=== PATIENT | male | born 1935 | race Caucasian/White ===

== ENCOUNTER 2016-10-16 13:51 | Emergency (ER) | payer MEDICARE ==
[~2016-10-16] VITALS: Ht 175.3 cm; Wt 107.9 kg
[~2016-10-16 13:51] MED LIST: ARMO90TA PO; FURO1TAB93 PO; GLUCTAB PO; LISI2.5T3 PO; PHEN-329 PO; POTA-243 PO; PRAV40TA2 PO
[2016-10-16 13:56] VITALS: BP 135/58; PULSE 68; RESP 18; TEMP 97.5; O2SAT 92
[2016-10-16] MEDS ORDERED: FURO40TA PO (15:21)
[2016-10-16] MEDS ORDERED: AMIO200T PO (15:21)
[2016-10-16] MEDS ORDERED: GLIP1TAB60 PO (15:21)
[2016-10-16] MEDS ORDERED: ATOR40TA16 PO (15:21)
[2016-10-16] MEDS ORDERED: POTA1TAB4 PO (15:21)
[2016-10-16] MEDS ORDERED: CHOL50006 PO (15:21)
[2016-10-16] MEDS ORDERED: VENTAER INH (15:21)
[2016-10-16] MEDS ORDERED: LOSA25TA PO (15:21)
[2016-10-16] MEDS ORDERED: METO50TA PO (15:21)
[2016-10-16 15:35] LABS: BLOOD, URINE NEG (NEG); GLUCOSE,URINE NEG (NEG); KETONE, URINE NEG (NEG); NITRITE,URINE NEG (NEG)
--- NOTE | 2016-10-16 15:51 | PD ---
HPI Chief Complaint: General Weakness Time Seen by Provider: 15:10 Travel History International Travel<30 days: No Contact w/Intl Traveler<30days: No Traveled to known affect area: No History of Present Illness HPI Patient presents with complaints of malaise and general weakness. Onset coincides with statin dosage change from 10 mg to 40 mg. Denies any nausea vomiting diarrhea or fever. Denies any chest pain shortness of breath urinary or bowel symptoms. Otherwise feels well PFSH Past Medical History Hx Anticoagulant Therapy: No Asthma: No Autoimmune Disease: No Blood Disorders: No Cancer: No Cardiac Catheterization: Yes Cardiovascular Problems: Yes (WI'S, DEFIBRILLATOR, HTN, CHOL) High Cholesterol: Yes Chemotherapy: No Chest Pain: Yes Congestive Heart Failure: Yes COPD: No Diabetes: Yes Patient Takes Glucophage: No Diminished Hearing: Yes Endocrine: No Gastrointestinal Disorders: No Genitourinary: No Hypertension: Yes Musculoskeletal: No Neurologic: No Psychiatric: No Respiratory: No Immunizations Current: Yes Thyroid Disease: Yes Tetanus Vaccination: Unknown Influenza Vaccination: No Past Surgical History AICD: Yes Coronary Artery Bypass Graft: Yes (2004) Coronary Stent: Yes (X1) Social History Alcohol Use: Yes (VERY RARE) Tobacco Use: No (FORMER) Substance Use: No Allergies-Medications (Allergen,Severity, Reaction): Coded Allergies: Penicillin (Verified Allergy, Severe, Rash, 10/16/16) Reported Meds & Prescriptions Reported Meds & Active Scripts Active Reported Ventolin Hfa 18 GM Inh (Albuterol Sulfate) 90 Mcg/Act Aer 2 Puff INH Q4H PRN Amiodarone (Amiodarone HCl) 200 Mg Tab 200 Mg PO DAILY Losartan (Losartan Potassium) 25 Mg Tab 25 Mg PO DAILY Furosemide 40 Mg Tab 40 Mg PO DAILY Glipizide ER (Glipizide) 2.5 Mg Jeff 2.5 Mg PO BID Take with breakfast or first main meal of the day Vitamin D (Cholecalciferol) 5,000 Unit Tab 5,000 Units PO MOFR Metoprolol Tartrate 50 Mg Tab 50 Mg PO BID Atorvastatin (Atorvastatin Calcium) 40 Mg Tab 40 Mg PO DAILY K-Tab (Potassium Chloride) 20 Meq Tab 20 Meq PO BID Review of Systems General / Constitutional: No: Fever Eyes: No: Visual changes HENT: No: Headaches Cardiovascular: No: Chest Pain or Discomfort Respiratory: No: Shortness of Breath Gastrointestinal: No: Abdominal Pain Genitourinary: No: Dysuria Musculoskeletal: Positive: Myalgias, Weakness, No: Pain Skin: No Rash Neurologic: No: Weakness Psychiatric: No: Depression Endocrine: No: Polydipsia Hematologic/Lymphatic: No: Easy Bruising Physical Exam Narrative GENERAL: Well-nourished, well-developed patient. SKIN: Warm and dry. HEAD: Normocephalic. EYES: No scleral icterus. No injection or drainage. NECK: Supple, trachea midline. No JVD or lymphadenopathy. CARDIOVASCULAR: Regular rate and rhythm without murmurs, gallops, or rubs. RESPIRATORY: Breath sounds equal bilaterally. No accessory muscle use. GASTROINTESTINAL: Abdomen soft, non-tender, nondistended. MUSCULOSKELETAL: No cyanosis, or edema. BACK: Nontender without obvious deformity. No CVA tenderness. Data Data Last Documented VS Vital Signs Date Time Temp Pulse Resp B/P Pulse Ox O2 Delivery O2 Flow Rate FiO2 10/16/16 15:00 66 18 93 Room Air 10/16/16 13:56 97.5 135/58 Orders Urinalysis - C+S If Indicated (10/16/16 15:10) Influenzae A/B Antigen (10/16/16 15:10) Labs Laboratory Tests Test 10/16/16 15:20 Urine pH 6.0 Urine Protein NEG mg/dL Urine Glucose (UA) NEG mg/dL Urine Ketones NEG mg/dL Urine Occult Blood NEG Urine Nitrite NEG Urine Bilirubin NEG Urine Leukocyte Esterase NEG MDM Medical Decision Making Medical Screen Exam Complete: Yes Emergency Medical Condition: Yes Differential Diagnosis Medication side effect, influenza, UTI Narrative Course Assessment and plan discussed with patient and daughter at bedside. Urinalysis and influenza noted. Diagnosis Primary Impression: Medication side effect Qualified Code: T88.7XXA - Medication side effect, initial encounter Patient Instructions: General Instructions Additional Instructions: Rest fluids and Tylenol. I think with the lack of symptoms is most likely a reaction to the significant change in dosage of a statin. Encouraged to hold statin and follow-up with PCP to assess benefit. Encouraged to follow with his PCP or return to the ER with any new symptoms. Med/Other Pt SpecificInfo: No Meds Exist/No RX given Disposition: 01 DISCHARGE HOME Condition: Good Rex Grullon MD Oct 16, 2016 15:51
[2016-10-16 16:16] LABS: COMMENT (UR) CULT NOT INDICATED; CULTURE IF INDICATED CULT NOT INDICATED; METHOD OF COLLECTION CLEAN CATCH; RBC, URINE 0-3 /hpf (0-3); SQUAMOUS EPITHELIAL CELL URINE 0-5 /hpf (0-5); URINE COLOR YELLOW (YELLW/STRAW)
[2016-10-16 16:27] VITALS: BP 117/65
== END 2016-10-16 16:28 | disposition home or self-care (01) ==
LOC: PHED 13:51
DX: T88.7XXA Unspecified adverse effect of drug or medicament, initial encounter (principal); R53.81 Other malaise; R53.1 Weakness; E78.00 Pure hypercholesterolemia, unspecified; E11.9 Type 2 diabetes mellitus without complications; H91.90 Unspecified hearing loss, unspecified ear; I10 Essential (primary) hypertension; E07.9 Disorder of thyroid, unspecified; Z79.899 Other long term (current) drug therapy; Z79.84 Long term (current) use of oral hypoglycemic drugs; Z87.891 Personal history of nicotine dependence; Z86.79 Personal history of other diseases of the circulatory system
CPT/HCPCS: 81001; 87804; 99284

== ENCOUNTER 2018-01-08 19:44 | Observation (INO) | payer MEDICARE ==
[2018-01-07] MEDS: NITROGLYCERIN 0.4 MG SL 25 TABS/BTL SL SCH ×2 (20:30→20:35)
[~2018-01-08] VITALS: Ht 175.3 cm; Wt 110.4 kg
[2018-01-08 19:44] VITALS: BP 120/57; PULSE 73; RESP 18; TEMP 97.3; O2SAT 96
[~2018-01-08 19:44] MED LIST changes: +AMIO200T PO; -ARMO90TA PO; +ATOR40TA16 PO; +CHOL50006 PO; -FURO1TAB93 PO; +FURO40TA PO; +GLIP1TAB60 PO; -GLUCTAB PO; -LISI2.5T3 PO; +LOSA25TA PO; +METO50TA PO; -PHEN-329 PO; -POTA-243 PO; +POTA1TAB4 PO; -PRAV40TA2 PO; +VENTAER INH
[2018-01-08 19:55] VITALS: BP 120/57; PULSE 75; RESP 20; TEMP 97.3; O2SAT 95
[2018-01-08 20:00] VITALS: BP 102/59; PULSE 72; RESP 18; O2SAT 96
--- NOTE | 2018-01-08 20:28 | PD ---
HPI Chief Complaint: chest pain Time Seen by Provider: 20:02 Travel History International Travel<30 days: No Contact w/Intl Traveler<30days: No History of Present Illness HPI Patient is an 82-year-old male with history of CABG, CAD, hypertension, atrial fibrillation, COPD, hyperlipidemia, diabetes, presents the emergency room with complaints of chest pain. Patient reports that he has been having chest pain for the past 3-4 days, patient reports that chest pain is substernal in nature and feels like a "pressure to my chest." Patient reports that he has been feeling short of breath with the symptoms, reports that he has history of HI in the past, reports that when he last suffered an HI, he had symptoms of indigestion, reports that pain today is different. Patient does follow-up with Dr. 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 Akers decrease his dose of amiodarone from 3 times a day to once a day. Patient believes that once he change his medication dose, "I began to go down the drain." Patient reports that his initial chest pain was initially intermittent in nature, reports that his chest pain lasts a little longer now. Patient also endorses that he fell one week ago, patient also complains of left- sided shoulder pain. PFSH Past Medical History Hx Anticoagulant Therapy: No Asthma: No Autoimmune Disease: No Blood Disorders: No Cancer: No Cardiac Catheterization: Yes Cardiovascular Problems: Yes (HI'S, DEFIBRILLATOR, HTN, CHOL) High Cholesterol: Yes Chemotherapy: No Chest Pain: Yes Congestive Heart Failure: Yes COPD: No Diabetes: Yes Diminished Hearing: Yes Endocrine: No Gastrointestinal Disorders: No Genitourinary: No Hypertension: Yes Musculoskeletal: No Neurologic: No Psychiatric: No Respiratory: No Immunizations Current: Yes Thyroid Disease: Yes Past Surgical History AICD: Yes Coronary Artery Bypass Graft: Yes (2005) Coronary Stent: Yes (X1) Social History Alcohol Use: Yes (VERY RARE) Tobacco Use: No (FORMER) Substance Use: No Allergies-Medications (Allergen,Severity, Reaction): Coded Allergies: penicillin G (Unverified Allergy, Severe, Rash, 05/09/17) Reported Meds & Prescriptions Reported Meds & Active Scripts Active Reported Vitamin D3 (Cholecalciferol) 5,000 Unit Cap 5,000 Units PO DAILY Levothyroxine (Levothyroxine Sodium) 25 Mcg Tab 25 Mcg PO DAILY Ventolin Hfa 18 GM Inh (Albuterol Sulfate) 90 Mcg/Act Aer 2 Puff INH Q4H PRN Amiodarone (Amiodarone HCl) 200 Mg Tab 200 Mg PO DAILY Furosemide 40 Mg Tab 40 Mg PO DAILY Glipizide ER (Glipizide) 2.5 Mg Jeff 2.5 Mg PO BID Take with breakfast or first main meal of the day Metoprolol Tartrate 50 Mg Tab 50 Mg PO BID K-Tab (Potassium Chloride) 20 Meq Tab 20 Meq PO BID Review of Systems General / Constitutional: No: Fever Eyes: No: Visual changes HENT: No: Headaches Cardiovascular: Positive: Chest Pain or Discomfort Respiratory: Positive: Shortness of Breath Gastrointestinal: No: Abdominal Pain Genitourinary: No: Dysuria Musculoskeletal: No: Pain Skin: No Rash Neurologic: No: Weakness Psychiatric: No: Depression Endocrine: No: Polydipsia Hematologic/Lymphatic: No: Easy Bruising Physical Exam Narrative GENERAL: Mild distress SKIN: Focused skin assessment warm/dry. HEAD: Atraumatic. Normocephalic. EYES: Pupils equal and round. No scleral icterus. No injection or drainage. ENT: No nasal bleeding or discharge. Mucous membranes pink and moist. NECK: Trachea midline. No JVD. CARDIOVASCULAR: Regular rate and rhythm. No murmur appreciated. RESPIRATORY: No accessory muscle use. Clear to auscultation. Breath sounds equal bilaterally. GASTROINTESTINAL: Abdomen soft, non-tender, nondistended. Hepatic and splenic margins not palpable. MUSCULOSKELETAL: No obvious deformities. No clubbing. No cyanosis. No edema. NEUROLOGICAL: Awake and alert. No obvious cranial nerve deficits. Motor grossly within normal limits. Normal speech. PSYCHIATRIC: Appropriate mood and affect; insight and judgment normal. Data Data Last Documented VS Vital Signs Date Time Temp Pulse Resp B/P (MAP) Pulse Ox O2 Delivery O2 Flow Rate FiO2 01/08/18 22:00 72 16 135/60 (85) 98 Room Air 01/08/18 19:55 97.3 Orders Orders Electrocardiogram (01/08/18 20:17) B-Type Natriuretic Peptide (01/08/18 20:17) Ckmb (Isoenzyme) Profile (01/08/18 20:17) Complete Blood Count With Diff (01/08/18 20:17) Comprehensive Metabolic Panel (01/08/18 20:17) Magnesium (Mg) (01/08/18 20:17) Prothrombin Time / Inr (Pt) (01/08/18 20:17) Act Partial Throm Time (Ptt) (01/08/18 20:17) Troponin I (01/08/18 20:17) Lipase (01/08/18 20:17) Chest, Single Ap (01/08/18 20:17) Ecg Monitoring (01/08/18 20:17) Iv Access Insert/Monitor (01/08/18 20:17) Oximetry (01/08/18 20:17) Aspirin Chew (Aspirin Chew) (01/08/18 20:30) Sodium Chloride 0.9% Flush (Ns Flush) (01/08/18 20:30) Shoulder, Complete (>2vws) (01/08/18 ) Nitroglycerin Sl (Nitrostat Sl) (01/08/18 20:30) Morphine Inj (Morphine Inj) (01/08/18 20:45) Labs Laboratory Tests Test 01/08/18 20:30 White Blood Count 6.8 TH/MM3 Red Blood Count 4.70 MIL/MM3 Hemoglobin 13.5 GM/DL Hematocrit 40.4 % Mean Corpuscular Volume 86.0 FL Mean Corpuscular Hemoglobin 28.8 PG Mean Corpuscular Hemoglobin Concent 33.5 % Red Cell Distribution Width 13.9 % Platelet Count 196 TH/MM3 Mean Platelet Volume 8.4 FL Neutrophils (%) (Auto) 63.5 % Lymphocytes (%) (Auto) 24.3 % Monocytes (%) (Auto) 9.9 % Eosinophils (%) (Auto) 1.9 % Basophils (%) (Auto) 0.4 % Neutrophils # (Auto) 4.3 TH/MM3 Lymphocytes # (Auto) 1.7 TH/MM3 Monocytes # (Auto) 0.7 TH/MM3 Eosinophils # (Auto) 0.1 TH/MM3 Basophils # (Auto) 0.0 TH/MM3 CBC Comment DIFF FINAL Differential Comment Prothrombin Time 9.9 SEC Prothromb Time International Ratio 1.0 RATIO Activated Partial Thromboplast Time 26.4 SEC Blood Urea Nitrogen 27 MG/DL Creatinine 1.30 MG/DL Random Glucose 137 MG/DL Total Protein 7.5 GM/DL Albumin 3.1 GM/DL Calcium Level 10.0 MG/DL Magnesium Level 2.2 MG/DL Alkaline Phosphatase 95 U/L Aspartate Amino Transf (AST/SGOT) 16 U/L Alanine Aminotransferase (ALT/SGPT) 16 U/L Total Bilirubin 0.2 MG/DL Sodium Level 144 MEQ/L Potassium Level 4.1 MEQ/L Chloride Level 111 MEQ/L Carbon Dioxide Level 24.6 MEQ/L Anion Gap 8 MEQ/L Estimat Glomerular Filtration Rate 53 ML/MIN Total Creatine Kinase 35 U/L Troponin I LESS THAN 0.02 NG/ML B-Type Natriuretic Peptide 205 PG/ML Lipase 155 U/L [facility] Medical Decision Making Medical Screen Exam Complete: Yes Emergency Medical Condition: Yes Medical Record Reviewed: Yes Interpretation(s) EKG at 2010: NSR at 73bpm, qt/qtc: 419/444, no acute changes Vital Signs Date Time Temp Pulse Resp B/P (MAP) Pulse Ox O2 Delivery O2 Flow Rate FiO2 01/08/18 19:55 97.3 75 20 120/57 (78) 95 Differential Diagnosis ACS, arrhythmia, electrolyte abnormality, CHF exacerbation, atrial fibrillation Narrative Course Patient is an 82-year-old male who presents the emergency room with complaints of chest pain. Patient has been having intermittent episodes of chest pain for the past few days, reports that pain has been increasing over the past few days. During the course of the patients emergency department visit, the patients history, examination, and differential diagnosis were reviewed with the patient. The patient was placed on a hotel assistant general manager with oximetry and frequent blood pressure monitoring. The patient had an IV access obtained and blood work sent for analysis. The patient was initially provided asa as well as SL nitro The patients laboratory studies were reviewed and remarkable for Laboratory Tests Test 01/08/18 20:30 White Blood Count 6.8 TH/MM3 (4.0-11.0) Red Blood Count 4.70 MIL/MM3 (4.50-5.90) Hemoglobin 13.5 GM/DL (13.0-17.0) Hematocrit 40.4 % (39.0-51.0) Mean Corpuscular Volume 86.0 FL (80.0-100.0) Mean Corpuscular Hemoglobin 28.8 PG (27.0-34.0) Mean Corpuscular Hemoglobin Concent 33.5 % (32.0-36.0) Red Cell Distribution Width 13.9 % (11.6-17.2) Platelet Count 196 TH/MM3 (150-450) Mean Platelet Volume 8.4 FL (7.0-11.0) Neutrophils (%) (Auto) 63.5 % (16.0-70.0) Lymphocytes (%) (Auto) 24.3 % (9.0-44.0) Monocytes (%) (Auto) 9.9 % (0.0-8.0) Eosinophils (%) (Auto) 1.9 % (0.0-4.0) Basophils (%) (Auto) 0.4 % (0.0-2.0) Neutrophils # (Auto) 4.3 TH/MM3 (1.8-7.7) Lymphocytes # (Auto) 1.7 TH/MM3 (1.0-4.8) Monocytes # (Auto) 0.7 TH/MM3 (0-0.9) Eosinophils # (Auto) 0.1 TH/MM3 (0-0.4) Basophils # (Auto) 0.0 TH/MM3 (0-0.2) CBC Comment DIFF FINAL Differential Comment Prothrombin Time 9.9 SEC (9.8-11.6) Prothromb Time International Ratio 1.0 RATIO Activated Partial Thromboplast Time 26.4 SEC (24.3-30.1) Blood Urea Nitrogen 27 MG/DL (7-18) Creatinine 1.30 MG/DL (0.60-1.30) Random Glucose 137 MG/DL (74-106) Total Protein 7.5 GM/DL (6.4-8.2) Albumin 3.1 GM/DL (3.4-5.0) Calcium Level 10.0 MG/DL (8.5-10.1) Magnesium Level 2.2 MG/DL (1.5-2.5) Alkaline Phosphatase 95 U/L (45-117) Aspartate Amino Transf (AST/SGOT) 16 U/L (15-37) Alanine Aminotransferase (ALT/SGPT) 16 U/L (12-78) Total Bilirubin 0.2 MG/DL (0.2-1.0) Sodium Level 144 MEQ/L (136-145) Potassium Level 4.1 MEQ/L (3.5-5.1) Chloride Level 111 MEQ/L (98-107) Carbon Dioxide Level 24.6 MEQ/L (21.0-32.0) Anion Gap 8 MEQ/L (5-15) Estimat Glomerular Filtration Rate 53 ML/MIN (>89) Total Creatine Kinase 35 U/L (39-308) Troponin I LESS THAN 0.02 NG/ML B-Type Natriuretic Peptide 205 PG/ML (0-100) Lipase 155 U/L (73-393) Last Impressions Chest X-Ray 01/08/182016 Signed Impressions: Service Date/Time: Monday, January 08, 2018 20:52 - CONCLUSION: Diffuse increase interstitial markings and cardiomegaly likely related to pulmonary venous hypertension or mild CHF. Cardiomegaly with underlying chronic interstitial disease could have a similar appearance. Owen Nick MD Shoulder X-Ray 01/08/18 Signed Impressions: Service Date/Time: Monday, January 08, 2018 20:52 - CONCLUSION: Negative left shoulder series. Owen Nick MD Patient feels much better at this time. discussed wit patient plan to obs him to chest pain unit. Patient aggreeable Diagnosis Primary Impression: Chest pain Qualified Codes: R07.9 - Chest pain, unspecified Admitting Information Admitting Physician Requests: Observation Elsa Guthrie DO Jan 08, 2018 20:28
[2018-01-08] MEDS ORDERED: ASPIRIN 81 MG CHEW TAB PO ONE (20:30)
[2018-01-08] MEDS ORDERED: SODIUM CHLORIDE 0.9% FLUSH 10 ML FLUSH IVF PRN (20:30)
[2018-01-08] MEDS: NITROGLYCERIN 0.4 MG SL 25 TABS/BTL SL SCH (20:40)
[2018-01-08 20:41] LABS: AUTOMATED NEUTROPHIL # 4.3 TH/MM3 (1.8-7.7); BASOPHIL % 0.4 % (0.0-2.0); EOSINOPHIL # 0.1 TH/MM3 (0-0.4); EOSINOPHIL % 1.9 % (0.0-4.0); HEMATOCRIT 40.4 % (39.0-51.0); HEMOGLOBIN 13.5 GM/DL (13.0-17.0); LYMPH % 24.3 % (9.0-44.0); LYMPHOCYTE # 1.7 TH/MM3 (1.0-4.8); MEAN CORPUSCULAR HEMOGLOBIN 28.8 PG (27.0-34.0); MEAN CORPUSCULAR HGB CONC 33.5 % (32.0-36.0); MEAN PLATELET VOLUME 8.4 FL (7.0-11.0); MONO % 9.9 % (0.0-8.0); MONOCYTE # 0.7 TH/MM3 (0-0.9); NEUT % 63.5 % (16.0-70.0); PLATELET COUNT 196 TH/MM3 (150-450); RED CELL DISTRIBUTION WIDTH 13.9 % (11.6-17.2); WHITE BLOOD COUNT 6.8 TH/MM3 (4.0-11.0)
[2018-01-08] MEDS ORDERED: MORPHINE SULFATE 2 MG/ML SYRINGE IV PUSH ONE (20:45)
[2018-01-08 20:48] LABS: CHLORIDE 111 MEQ/L (98-107); SODIUM (NA) 144 MEQ/L (136-145)
[2018-01-08 20:52] LABS: ALBUMIN 3.1 GM/DL (3.4-5.0); BICARBONATE 24.6 MEQ/L (21.0-32.0); BLOOD UREA NITROGEN 27 MG/DL (7-18); GLUCOSE,RANDOM 137 MG/DL (74-106); MAGNESIUM 2.2 MG/DL (1.5-2.5)
[2018-01-08 20:55] LABS: ALT (GPT) 16 U/L (12-78); AST (GOT) 16 U/L (15-37); GLOMERULAR FILTRATION RATE 53 ML/MIN (>89)
[2018-01-08 20:57] LABS: TOTAL BILIRUBIN ADULT 0.2 MG/DL (0.2-1.0); TOTAL PROTEIN 7.5 GM/DL (6.4-8.2)
[2018-01-08 20:58] LABS: ALKALINE PHOSPHATASE 95 U/L (45-117)
[2018-01-08 21:00] VITALS: BP 125/62; PULSE 70; RESP 18; O2SAT 96
[2018-01-08 21:00] LABS: TROPONIN I LESS THAN 0.02 NG/ML (0.02-0.05)
[2018-01-08 21:04] LABS: PROTHROMBIN TIME - PATIENT 9.9 SEC (9.8-11.6)
--- NOTE | 2018-01-08 21:35 | RADRPT ---
EXAM DATE/TIME: 01/08/2018 20:52 [facility] COMPARISON: No previous studies available for comparison. INDICATIONS : Left upper chest and shoulder pain after falling 2 days ago. MEDICAL HISTORY : None. SURGICAL HISTORY : Pacemaker. CABG. ENCOUNTER: Initial ACUITY: 2 days PAIN SCORE: 5/10 LOCATION: Left shoulder FINDINGS: Multiple view examination of the left shoulder demonstrates no evidence of fracture or dislocation. The glenohumeral and acromioclavicular joints are maintained. There is normal range of motion betwee n internal and external rotation. The bones appear osteopenic. There is a pacemaker seen in the left chest. The patient is status post sternotomy. There is a prosth etic valve present. There is interstitial disease seen in the lungs. CONCLUSION: Negative left shoulder series. Owen Nick MD on January 08, 2018 at 21:31 Board Certified Radiologist. This report was verified electronically.
--- NOTE | 2018-01-08 21:36 | RADRPT ---
EXAM DATE/TIME: 01/08/2018 20:52 [facility] COMPARISON: CHEST SINGLE AP, June 22, 2015, 15:10. INDICATIONS : Left upper chest and shoulder pain after falling 2 days ago. MEDICAL HISTORY : Hypertension. Congestive heart failure. Coronary artery disease. SURGICAL HISTORY : Pacemaker. CABG. Coronary artery stent. ENCOUNTER: Initial ACUITY: 2 days PAIN SCORE: 4/10 LOCATION: Left upper chest FINDINGS: The patient is status post sternotomy. There is a pacing device in the left chest. There is a prosthe tic valve present. There is diffuse increased interstitial markings. These are unchanged from the cesia or exam. An alveolar consolidation is not seen. No effusion is seen. CONCLUSION: Diffuse increase interstitial markings and cardiomegaly likely related to pulmonary venous hypertens ion or mild CHF. Cardiomegaly with underlying chronic interstitial disease could have a similar appe arance. Owen Nick MD on January 08, 2018 at 21:33 Board Certified Radiologist. This report was verified electronically.
[2018-01-08 22:00] VITALS: BP 135/60; PULSE 72; RESP 16; O2SAT 98
[2018-01-08] MEDS ORDERED: LEVO25TA4 PO (22:33)
[2018-01-08] MEDS ORDERED: CHOL5000 PO (22:33)
[2018-01-08] MEDS ORDERED: SODIUM CHLOR 0.9% 1000 ML INJ 1,000 ML IV SCH (23:10)
[2018-01-08 23:14] VITALS: BP 132/75; PULSE 78; RESP 16; O2SAT 96
[2018-01-08] MEDS ORDERED: ONDANSETRON HCL 4 MG/2 ML VIAL IV PUSH PRN (23:15)
[2018-01-08] MEDS ORDERED: ACETAMINOPHEN 500 MG CPLT PO PRN (23:15)
[2018-01-08] MEDS ORDERED: SODIUM CHLORIDE 0.9% FLUSH 10 ML FLUSH IV FLUSH PRN (23:15)
[2018-01-08] MEDS ORDERED: MORPHINE SULFATE 4 MG/ML INJ IV PUSH PRN (23:15)
[2018-01-09] VITALS (8 sets, daily range): BP systolic 106–142; BP diastolic 62–89; PULSE 65–74; RESP 16–22; TEMP 96.2–97.1; O2SAT 93–95
[2018-01-09 00:13] LABS: TROPONIN I LESS THAN 0.02 NG/ML (0.02-0.05)
[2018-01-09] MEDS: HEPARIN SODIUM - SQ 10,000 UNITS/ML VIAL SQ SCH ×2 (01:15→06:56)
[2018-01-09 04:17] LABS: TROPONIN I 0.02 NG/ML (0.02-0.05)
[2018-01-09] MEDS ORDERED: SODIUM CHLORIDE 0.9% FLUSH 10 ML FLUSH IV FLUSH SCH (09:00)
[2018-01-09] MEDS ORDERED: POTASSIUM CHLORIDE 20 MEQ CONTROLLED RELEASE TAB PO SCH (09:00)
[2018-01-09] MEDS ORDERED: GLUCAGON 1 MG/ML VIAL OTHER PRN (09:00)
[2018-01-09] MEDS ORDERED: AMIODARONE 200 MG TAB PO SCH (09:00)
[2018-01-09] MEDS ORDERED: METOPROLOL TARTRATE 50 MG TAB PO SCH (09:00)
[2018-01-09] MEDS ORDERED: FUROSEMIDE 40 MG/4 ML VIAL IV PUSH ONE (09:00)
[2018-01-09] MEDS ORDERED: FUROSEMIDE 40 MG TAB PO SCH (09:00)
[2018-01-09] MEDS ORDERED: DEXTROSE 50% IN WATER 50 ML VIAL(D50) IV PUSH PRN (09:00)
--- NOTE | 2018-01-09 09:00 | HHI.HP ---
[facility] Service [facility] Primary Care Physician Walt Schaffer MD Admission Diagnosis chest pain Diagnoses: (1) Chest pain Chief Complaint: Chest pain and dyspnea Travel History International Travel<30 Days: No Contact w/Intl Traveler <30 Da: No Traveled to Known Affected Are: No History of Present Illness This is an 82-year-old male patient with a known medical history of CAD with history of DE, CABG and cardiac stent placement, hypertension, COPD, hyperlipidemia, diabetes and atrial fibrillation who presented to the ED with complaints of chest pain and dyspnea. Patient states he has been having some chest pain for the last 3 or 4 days, he states it has evidence of sternal chest , pressure-like in nature, denies any radiation of pain, the pain usually last a few minutes and then resolves on its own. Does admit to history of DE with previous CABG, at the time he states that the pain he felt was different than his present pain. Denies any known alleviating or worsening factors. He denies any recent illness including fever, chills, cough, headache, shortness of breath, abdominal pain, nausea, vomiting, diarrhea or dysuria. Patient follows with Dr. Akers, [facility], who manages his atrial fibrillation and heart failure. Patient reportedly states his last echocardiogram showed an EF of 20-30%. Dr. Akers was last seen 2 weeks ago with a change in his amiodarone dose. It should be noted that patient also states he has not taken his furosemide on a daily basis, states it interferes with his daily life and he gets annoyed having to urinate all the time. He has noticed trace edema in his bilateral lower extremities. He also states that with activity he does get short of breath. Patient also endorses that he fell 1 week ago and complains of left shoulder pain upon presentation which is now resolved. Review of Systems Constitutional: DENIES: Diaphoretic episodes, Fatigue, Fever, Chills Eyes: DENIES: Blurred vision, Diplopia Respiratory: COMPLAINS OF: Shortness of breath, DENIES: Cough, Sputum production Cardiovascular: COMPLAINS OF: Chest pain, Lower Extremity Edema Gastrointestinal: DENIES: Abdominal pain, Black stools, Bloody stools, Constipation, Diarrhea, Nausea, Vomiting Musculoskeletal: DENIES: Joint pain Hematologic/lymphatic: DENIES: Bruising Psychiatric: COMPLAINS OF: Anxiety Except as stated in HPI: all other systems reviewed are Neg Past Family Social History Past Medical History Hypertension Hyperlipidemia History of DE and CABG and cardiac stent placement COPD CHF Diabetes Past Surgical History AICD placement History of CABG and cardiac stent placement 2004 Reported Medications Active Reported Vitamin D3 (Cholecalciferol) 5,000 Unit Cap 5,000 Units PO DAILY Levothyroxine (Levothyroxine Sodium) 25 Mcg Tab 25 Mcg PO DAILY Ventolin Hfa 18 GM Inh (Albuterol Sulfate) 90 Mcg/Act Aer 2 Puff INH Q4H PRN Amiodarone (Amiodarone HCl) 200 Mg Tab 200 Mg PO DAILY Furosemide 40 Mg Tab 40 Mg PO DAILY Glipizide ER (Glipizide) 2.5 Mg Jeff 2.5 Mg PO BID Take with breakfast or first main meal of the day Metoprolol Tartrate 50 Mg Tab 50 Mg PO BID K-Tab (Potassium Chloride) 20 Meq Tab 20 Meq PO BID Allergies: Coded Allergies: penicillin G (Unverified Allergy, Severe, Rash, 05/09/17) Active Ordered Medications Current Medications Medications (Trade) Dose Ordered Sig/Jannette Route Start Time Stop Time Status Last Admin (NS Flush) 2 ml UNSCH PRN IV FLUSH 01/08/18 23:15 (NS Flush) 2 ml BID IV FLUSH 01/09/18 09:00 (Tylenol) 500 mg Q4H PRN PO 01/08/18 23:15 (Zofran Inj) 4 mg Q6H PRN IV PUSH 01/08/18 23:15 (Heparin Inj) 5,000 units Q8H SQ 01/08/18 23:15 01/09/18 06:56 (Morphine Inj) 4 mg Q3H PRN IV PUSH 01/08/18 23:15 (Proair Hfa Inh) 2 puff Q4H PRN INH 01/09/18 10:00 (Cordarone) 200 mg DAILY PO 01/09/18 09:00 (Vitamin D3) 5,000 units DAILY PO 01/09/18 10:00 (Synthroid) 25 mcg DAILY@0600 PO 01/09/18 10:00 (Lopressor) 50 mg BID PO 01/09/18 09:00 (KCl) 20 meq BID PO 01/09/18 09:00 (Lasix) 40 mg DAILY PO 01/09/18 09:00 (D50w (Vial) Inj) 50 ml UNSCH PRN IV PUSH 01/09/18 09:00 (Glucagon Inj) 1 mg UNSCH PRN OTHER 01/09/18 09:00 (NovoLOG SUPPLEMENTAL SCALE) 1 ACHS SLIDING SCALE SQ 01/09/18 12:00 Family History Reviewed, noncontributory. Social History Denies any current tobacco use, alcohol use or illicit drug use. Physical Exam Vital Signs Vital Signs Date Time Temp Pulse Resp B/P (MAP) Pulse Ox O2 Delivery O2 Flow Rate FiO2 01/09/18 08:00 96.4 72 18 132/67 (88) 93 01/09/18 02:00 68 01/09/18 02:00 97.1 69 22 130/89 (103) 95 01/09/18 01:46 69 16 123/71 (88) 94 01/09/18 01:20 71 16 133/68 (89) 94 Room Air 01/09/18 00:40 93 21 01/09/18 00:20 74 16 106/62 (77) 95 Room Air 01/08/18 23:14 78 16 132/75 (94) 96 Room Air 01/08/18 22:00 72 16 135/60 (85) 98 Room Air 01/08/18 21:00 70 18 125/62 (83) 96 Room Air 01/08/18 20:45 73 18 97 Room Air 01/08/18 20:00 72 18 102/59 (73) 96 Room Air 01/08/18 19:55 97.3 75 20 120/57 (78) 95 01/08/18 19:44 97.3 73 18 120/57 (78) 96 Physical Exam GENERAL: Well-developed, well-nourished patient in NAD. SKIN: Warm and dry. No rash. HEAD: Normocephalic. Atraumatic. EYES: Pupils equal and round. No scleral icterus. No injection or drainage. ENT: No nasal bleeding or discharge. Mucous membranes pink and moist. NECK: Supple. Trachea midline. CARDIOVASCULAR: Regular rate and rhythm. S1, S2 noted. No murmur appreciated. No reproducible chest pain. RESPIRATORY: No accessory muscle use. Diminished breath sounds. Breath sounds equal bilaterally. GASTROINTESTINAL: Abdomen soft, non-tender, nondistended. Normoactive bowel sounds x4. MUSCULOSKELETAL: No obvious deformities. Extremities without clubbing, cyanosis. Mild trace bilateral edema. NEUROLOGICAL: Awake and alert. No obvious cranial nerve deficits. Motor grossly within normal limits. 5/5 muscle strength in bilateral upper and lower extremities. Normal speech. PSYCHIATRIC: Appropriate mood and affect; insight and judgment normal. Laboratory Laboratory Tests Test 01/08/18 20:30 01/08/18 23:45 01/09/18 02:45 White Blood Count 6.8 Red Blood Count 4.70 Hemoglobin 13.5 Hematocrit 40.4 Mean Corpuscular Volume 86.0 Mean Corpuscular Hemoglobin 28.8 Mean Corpuscular Hemoglobin Concent 33.5 Red Cell Distribution Width 13.9 Platelet Count 196 Mean Platelet Volume 8.4 Neutrophils (%) (Auto) 63.5 Lymphocytes (%) (Auto) 24.3 Monocytes (%) (Auto) 9.9 Eosinophils (%) (Auto) 1.9 Basophils (%) (Auto) 0.4 Neutrophils # (Auto) 4.3 Lymphocytes # (Auto) 1.7 Monocytes # (Auto) 0.7 Eosinophils # (Auto) 0.1 Basophils # (Auto) 0.0 CBC Comment DIFF FINAL Differential Comment Prothrombin Time 9.9 Prothromb Time International Ratio 1.0 Activated Partial Thromboplast Time 26.4 Blood Urea Nitrogen 27 Creatinine 1.30 Random Glucose 137 Total Protein 7.5 Albumin 3.1 Calcium Level 10.0 Magnesium Level 2.2 Alkaline Phosphatase 95 Aspartate Amino Transf (AST/SGOT) 16 Alanine Aminotransferase (ALT/SGPT) 16 Total Bilirubin 0.2 Sodium Level 144 Potassium Level 4.1 Chloride Level 111 Carbon Dioxide Level 24.6 Anion Gap 8 Estimat Glomerular Filtration Rate 53 Total Creatine Kinase 35 34 46 Troponin I LESS THAN 0.02 LESS THAN 0.02 0.02 B-Type Natriuretic Peptide 205 Lipase 155 Result Diagram: 01/08/18202901/08/182029 Imaging Last Impressions Chest X-Ray 01/08/182016 Signed Impressions: Service Date/Time: Monday, January 08, 2018 20:52 - CONCLUSION: Diffuse increase interstitial markings and cardiomegaly likely related to pulmonary venous hypertension or mild CHF. Cardiomegaly with underlying chronic interstitial disease could have a similar appearance. Owen Nick MD Shoulder X-Ray 01/08/18 0000 Signed Impressions: Service Date/Time: Monday, January 08, 2018 20:52 - CONCLUSION: Negative left shoulder series. Owen Nick MD Septic Shock Reassessment Septic shock perfusion: reassessment completed Caprini VTE Risk Assessment Caprini VTE Risk Assessment: Mod/High Risk (score >= 2) Caprini Risk Assessment Model Point Value = 1 Point Value = 2 Point Value = 3 Point Value = 5 Age 41-60 Minor surgery BMI > 25 kg/m2 Swollen legs Varicose veins or History of unexplained or recurrent spontaneous Oral contraceptives or hormone replacement Sepsis (< 1 month) Serious lung disease, including pneumonia (< 1 month) Abnormal pulmonary function Acute myocardial infarction Congestive heart failure (< 1 month) History of inflammatory bowel disease Medical patient at bed rest Age 61-74 Arthroscopic surgery Major open surgery (> 45 min) Laparoscopic surgery (> 45 min) Malignancy Confined to bed (> 72 hours) Immobilizing plaster cast Central venous access Age >= 75 History of VTE Family history of VTE Factor V Leiden Prothrombin [id number] Lupus anticoagulant Anticardiolipin antibodies Elevated serum homocysteine Heparin-induced thrombocytopenia Other congenital or acquired thrombophilia Stroke (< 1 month) Elective arthroplasty Hip, pelvis, or leg fracture Acute spinal cord injury (< 1 month) Prophylaxis Regimen Total Risk Factor Score Risk Level Prophylaxis Regimen 0-1 Low Early ambulation 2 Moderate Order ONE of the following: *Sequential Compression Device (SCD) *Heparin 5000 units SQ BID 3-4 Higher Order ONE of the following medications: *Heparin 5000 units SQ TID *Enoxaparin/Lovenox 40 mg SQ daily (WT < 150 kg, CrCl > 30 mL/min) *Enoxaparin/Lovenox 30 mg SQ daily (WT < 150 kg, CrCl > 10-29 mL/min) *Enoxaparin/Lovenox 30 mg SQ BID (WT < 150 kg, CrCl > 30 mL/min) AND/OR *Sequential Compression Device (SCD) 5 or more Highest Order ONE of the following medications: *Heparin 5000 units SQ TID (Preferred with Epidurals) *Enoxaparin/Lovenox 40 mg SQ daily (WT < 150 kg, CrCl > 30 mL/min) *Enoxaparin/Lovenox 30 mg SQ daily (WT < 150 kg, CrCl > 10-29 mL/min) *Enoxaparin/Lovenox 30 mg SQ BID (WT < 150 kg, CrCl > 30 mL/min) AND *Sequential Compression Device (SCD) Assessment and Plan Problem List: (1) Chest pain ICD Code: R07.9 - Chest pain, unspecified Status: Acute Plan: Patient has been admitted to the chest pain center for observation. Serial troponins and serial EKGs have been ordered for ruling out ACS purposes, serial troponins flat. EKG reviewed showing paced rhythm. Chest pain has now resolved. Lying in bed comfortably. Chest x-ray reviewed showing diffuse increased interstitial markings and cardiomegaly likely related to pulmonary venous hypertension and mild CHF. Cardiomegaly. Left shoulder x-ray negative. Spoke with [facility], Dr. Akers, who agrees with undergoing a cardiac nuclear stress test to further rule out any ACS. Patient is stable at this time and agreeable to the plan. Further hospitalization and treatment plan will depend on nuclear imaging results. (2) Congestive heart failure (CHF) ICD Code: I50.9 - Heart failure, unspecified Plan: BNP mildly elevated on presentation. Bilateral lower extremity trace edema. Chest x-ray as above. Restart home Lasix. Monitor intake and output closely. Assessment and Plan Nuclear imaging results reviewed, Dr. Akers, [facility] on-call, update about patient's status. EF 28% noted with heterogeneous left ventricle perfusion without a reversible perfusion defect identified.. Patient does have AICD in place. Follows with Dr. Akers on the outpatient setting. Will have patient follow in office upon discharge. All chest pain has resolved. Patient feels much improved. Has been diuresed with negative fluid balance. Urinating well. Patient agrees to take his Lasix on a daily basis as ordered along with potassium supplementation. All vitals stable. Patient is stable at this time and agreeable to plan. at bedside and updated about patient's hospitalization and plan. All questions answered. Problem Qualifiers (1) Chest pain: Qualified Codes: R07.9 - Chest pain, unspecified (2) Congestive heart failure (CHF): Qualified Codes: I50.9 - Heart failure, unspecified Slime Moore Jan 09, 2018 09:00
[2018-01-09] MEDS ORDERED: LEVOTHYROXINE SODIUM 25 MCG TAB PO SCH (10:00)
[2018-01-09] MEDS ORDERED: CHOLECALCIFEROL (VIT D3) 5000 UNIT CAP PO SCH (10:00)
[2018-01-09] MEDS ORDERED: ALBUTEROL SULFATE 90 MCG/ACT HFA 8 GM INHALER INH PRN (10:00)
[2018-01-09] MEDS ORDERED: REGADENOSON INJ 0.4 MG/5 ML SYR IV ONE (11:26)
[2018-01-09] MEDS ORDERED: INSULIN ASPART SUPPLEMENTAL SCALE SQ SCH (12:00)
--- NOTE | 2018-01-09 12:41 | RADRPT ---
EXAM DATE/TIME: 01/09/2018 11:10 [facility] COMPARISON: No previous studies available for comparison. INDICATIONS : Susbternal chest pain with dyspnea. Angina. Coronary artery disease. DOSE: 35 mCi Tc99m Myoview at stress. 11 mCi Tc99m Myoview at rest. 0.4 mg Lexiscan STRESS SYMPTOMS: Dyspnea, nausea and lightheaded. EJECTION FRACTION: 28% MEDICAL HISTORY : Hypertension. Chronic obstructive pulmonary disease. Myocardial infarction. Atrial fibrillation. SURGICAL HISTORY : CABG Coronary artery stent. Defibrillator. ENCOUNTER: Initial ACUITY: 2 days PAIN SCALE: 6/10 LOCATION: Substernal chest TECHNIQUE: The patient underwent pharmacologic stress with infusion of prescribed dose. Continuous ECG tracing was monitored during stress. Gated SPECT imaging was performed after stress and conventional SPECT i maging was performed at rest. The examination was performed on a SPECT/CT scanner, both attenuation and non-corrected datasets were reviewed. FINDINGS: DISTRIBUTION: The maximum perfused segment at stress is in the anterior wall. PERFUSION STUDY: There is heterogeneous patchy perfusion of the left ventricle. No focal reversible perfusion defect i s identified. There is fixed decreased perfusion involving portions of the lateral wall and anterosep janey wall. GATED STUDY: There is dyskinesia involving the distal septum. Otherwise, there is global hypokinesia. CONCLUSION: 1. Heterogeneous left ventricle perfusion without a reversible perfusion defect identified. 2. Abnormal left ventricle wall motion with global hypokinesia and septal dyskinesia. Left ventricula r ejection fraction is reduced at 28%. RISK CATEGORY: High (>3% Annual Mortality Rate) Owen Art MD on January 09, 2018 at 12:34 Board Certified Radiologist. This report was verified electronically.
--- NOTE | 2018-01-09 15:14 | HHI.DCPOC ---
Discharge Care Plan Diagnosis: (1) Congestive heart failure (CHF) (2) Chest pain Goals to Promote Your Health * To prevent worsening of your condition and complications * To maintain your health at the optimal level Directions to Meet Your Goals Take your medications as prescribed Follow your dietary instruction Follow activity as directed Keep your appointments as scheduled Take your immunizations and boosters as scheduled If your symptoms worsen call your PCP, if no PCP go to Urgent Care Center or Emergency Room Smoking is Dangerous to Your Health. Avoid second hand smoke Call the 24-hour hour crisis hotline for domestic abuse at Slime Moore Jan 09, 2018 15:14
--- NOTE | 2018-01-09 15:23 | EKG ---
Date Performed: 01/08/2018 Time Performed: 20:11:40 PTAGE: 82 years EKG: Sinus rhythm MODERATE T-WAVE ABNORMALITY, CONSIDER LATERAL ISCHEMIA ABNORMAL ECG PREVIOUS TRACING : 06/22/2015 14.05 Consider inferior myocardial infarction - age indeterminate DOCTOR: Juan Mead Interpretating Date/Time 01/09/2018 15:19:02
--- NOTE | 2018-01-09 15:24 | EKG ---
Date Performed: 01/08/2018 Time Performed: 23:37:34 PTAGE: 82 years EKG: Sinus rhythm PREVIOUS TRACING : 01/08/2018 20.11 Consider inferior myocardial infarction - age indeter minate DOCTOR: Juan Mead Interpretating Date/Time 01/09/2018 15:19:18
--- NOTE | 2018-01-09 15:24 | EKG ---
Date Performed: 01/09/2018 Time Performed: 02:40:06 PTAGE: 82 years EKG: Sinus rhythm Consider INFERIOR MYOCARDIAL INFARCTION - age indeterminate BORDERLINE ECG PREVIOUS TRACING : 01/08/2018 23.37 DOCTOR: Juan Mead Interpretating Date/Time 01/09/2018 15:19:36
--- NOTE | 2018-01-09 17:40 | TR ---
Date Performed: 01/09/2018 Time Performed: 11:42:30 DOCTOR: Kassy Roberson DRUG LIST: CLINICAL HISTORY: CHEST PAIN REASON FOR TEST: Chest pain REASON FOR ENDING: OBSERVATION: CONCLUSION: COMMENTS: Lexiscan stress test was performed under standard four minute protocol. Radionuclide was injected one minute prior to ending the test. No electrocardiographic abormalities were present t o suggest ischemia. Nuclear imaging and interpretation are pending.
== END 2018-01-09 16:14 | disposition home or self-care (01) ==
LOC: PHED 19:44 → PHEDA 23:18 → PH3B 01-09 01:54
PROVIDERS: ADMIT Hospitalist; ATTEND Hospitalist
DX: R07.89 Other chest pain (principal); I11.0 Hypertensive heart disease with heart failure; I50.9 Heart failure, unspecified; I25.10 Atherosclerotic heart disease of native coronary artery without angina pectoris; I25.2 Old myocardial infarction; J44.9 Chronic obstructive pulmonary disease, unspecified; E78.00 Pure hypercholesterolemia, unspecified; E11.9 Type 2 diabetes mellitus without complications; E07.9 Disorder of thyroid, unspecified; I48.91 Unspecified atrial fibrillation; R94.31 Abnormal electrocardiogram [ECG] [EKG]; H91.90 Unspecified hearing loss, unspecified ear; Z79.899 Other long term (current) drug therapy; Z95.5 Presence of coronary angioplasty implant and graft; Z95.810 Presence of automatic (implantable) cardiac defibrillator
CPT/HCPCS: 71045; 73030; 78452; 80053; 82550; 82948; 83690; 83735; 83880; 84484; 85025; 85610; 85730; 93005; 93017; 96360; 96372; 97162; 99285; A9502; G0378; G8987; G8988; J1644; J1940; J2785; J7030